=== PATIENT | male | born 1965 | race Caucasian/White ===

== ENCOUNTER → 2020-09-24 11:26 | Outpatient (CLI) | payer BC, SELFPAY ==
[2020-09-24 12:34] LABS: Add Manual Diff / Slide Review NO; Basophils Absolute Auto 0 /uL (0-100); Basophils Percent Auto 0.7 % (0-2); Eosinophils Absolute Auto 100 /uL (0-450); Eosinophils Percent Auto 2.3 % (2-4); Hematocrit 40.2 % (41-53); Lymphocytes Absolute Auto 1300 /uL (1100-4500); Lymphocytes Percent Auto 44.6 % (25-40); Mean Corpuscular HGB Conc 32.3 % (30-36); Mean Corpuscular Hemoglobin 23.1 PG (26-34); Mean Corpuscular Volume 71.7 fL (80-100); Monocytes Absolute Auto 400 /uL (0-900); Monocytes Percent Auto 12.8 % (3-14); Neutrophils Absolute Auto 1200 /uL (1500-7000); Neutrophils Percent Auto 39.6 % (50-75); Platelet Count 162 X10^3/uL (150-400); Red Blood Cell Count 5.61 X10^6/uL (4.5-5.9); Red Cell Distribution Width 15.4 % (11.6-14.8)
[2020-09-24 12:51] LABS: Alanine Aminotransferase 40 IU/L (<50); Albumin 4.3 g/dL (3.5-5.0); Albumin Globulin Ratio 1.5 (1.0-2.8); Alkaline Phosphatase 68 U/L (38-126); Aspartate Aminotransferase 40 IU/L (17-59); BUN Creatinine Ratio 16.7 (6-22); Bilirubin Total 0.8 mg/dL (0.2-1.3); Blood Urea Nitrogen 17 mg/dL (9-20); Calcium 9.7 mg/dL (8.4-10.2); Carbon Dioxide 28 mmol/L (22-32); Chloride 106 mmol/L (98-107); Cholesterol 261 mg/dL (140-199); Estimated Glomerular Filt Rate > 60.0 mL/min (>60); Globulin 2.8 g/dL (1.7-4.1); Glucose 100 mg/dL (70-100); HDL Cholesterol 47 mg/dL (40-60); HEMOLYSIS < 15 (0-50); LDL Cholesterol Calculated 188 mg/dL (<100); Potassium 4.1 mmol/L (3.4-5.1); Sodium 140 mmol/L (137-145); Total Protein 7.1 g/dL (6.3-8.2); Triglycerides 128 mg/dL (35-150)
[2020-09-24 13:18] LABS: Prostate Specific Antigen Scrn 4.17 ng/mL (0.1-4.0)
== END ==
PROVIDERS: PCP Internal Medicine; Referring Provider Internal Medicine; Visit Provider Internal Medicine
DX: E78.2 Mixed hyperlipidemia (principal); Z86.010 Personal history of colon polyps; Z12.5 Encounter for screening for malignant neoplasm of prostate; D56.1 Beta thalassemia
CPT/HCPCS: 36415; 80053; 80061; 85025; G0103

== ENCOUNTER → 2020-11-10 09:12 | Outpatient (CLI) | payer BC, SELFPAY ==
[2020-11-10 10:20] LABS: COVID19 -Nasal RAPID Negative (Negative)
== END ==
PROVIDERS: PCP Internal Medicine; Visit Provider Surgery
DX: Z20.822 Contact with and (suspected) exposure to COVID-19 (principal)
CPT/HCPCS: 87635; C9803

== ENCOUNTER 2020-11-11 13:32 | Day surgery (SDC) | payer BC, SELFPAY ==
--- NOTE | 2020-11-11 | PATH_ITS ---
[facility] Accession Number: [id number] . 01 Material submitted: . sigmoid colon - SIGMOID POLYP . 02 Diagnosis: Sigmoid Polyp: Hyperplastic polyp. MRV 11/17/2020 1117 Local . 02 Electronically signed: . Mariana Kincaid MD, Pathologist NPI- [id number] . 01 Gross description: . SIGMOID POLYP: Received in formalin is 1 fragment(s) of wilson, soft tissue measuring 0.5 x 0.2 x 0.1 cm submitted entirely in 1 cassette(s) /LUIS ENRIQUE 11/12/2020 0852 Local . 02 Pathologist provided ICD-10: Z12.11, K63.5, Z86.010 . 02 CPT . 986916 Performed at: 01 [facility] Cyt[facility] [address] [place] [address], [place], [place] [id number] MD Baudilio Metzger MD Phone: [phone] Performed at: 02 [facility] [address] [place], [place] [id number] MD Alisha Curry MD Phone: [phone]
[2020-11-11] MEDS: LACTATED RINGERS 1,000 ML 200 ML IV (13:47)
[2020-11-11 13:54] VITALS: BP 146/87; PULSE 57; RESP 16; TEMP 36.4; O2SAT 99; BMI 23.7
--- NOTE | 2020-11-11 14:31 | P.HP_ITS ---
History of Present Illness History of Present Illness Date Patient Seen: 11/11/20 Time Patient Seen: 14:32 Chief complaint: SCREENING COLONOSCOPY Narrative: The patient presents for colorectal sreening. Multiple prior colonoscopies most recently 3 years ago had numerous polyps removed all benign. No personal or family history of colon cancer. On further history denies any recent gastrointestinal symptoms. No nausea, vomiting, abdominal pain, loss of appetite, unexplained weight loss, change in bowel habits, diarrhea, constipation, melena, hematochezia, or bright red blood per rectum. Patient History Medical History Beta thalassemia Cervical disc disorder at C5-C6 level with radiculopathy H/O adenomatous polyp of colon Mixed hyperlipidemia Surgical History S/P routine circumcision Family & Social History Family History Father Coronary artery disease Mother Dementia Social History: household members spouse Tobacco & Substance use: Smoking Status Never smoker alcohol intake current alcohol intake frequency a few times a week Substance Use Type does not use Meds Home Medications and Allergies Home Medications Medication Instructions Recorded Confirmed Type sodium,potassium,mag sulfates 17.5 177 ml PO DAILY #354 ml 09/29/20 11/11/20 Rx gram-3.13 gram-1.6 gram oral soln Allergies Allergy/AdvReac Type Severity Reaction Status Date / Time No Known Drug Allergies Allergy Verified 11/11/20 14:01 Review of Systems Review of Systems ROS: Yes All systems reviewed with the patient and are negative except as otherw ise documented Exam Vital Signs (past 8 hours): - 11/11/20 13:54 Temperature 97.5 F L Pulse Rate 57 L Respiratory Rate 16 Blood Pressure 146/87 H Pulse Oximetry 99 Oxygen Delivery Method Room Air Narrative Exam Narrative: GENERAL-well developed adult male, no acute distress HEENT-no scleral icterus, hearing intact NECK-no JVD, trachea midline CVS- regular rate, no peripheral edema RESP-unlabored respiratory effort, no audible wheezing GI-soft, nontender nondistended MSK-no cyanosis or clubbing, extremities without deformity SKIN-warm, dry NEURO-alert and oriented, no focal deficits PYSCH-Appropriate mood and affect Assessment & Plan Assessment & Plan narrative: The patient requires colorectal screening and colonoscopy is recommended. Technical details were discussed. Risks, benefits, alternatives explained. Risks including but not limited to myocardial infarction, aspiration, bleeding, pain, missed lesion, incomplete examination, need for further radiographic studies, colonic perforation, and need for major abdominal surgery were discussed. All questions were answered to their satisfaction, and they are in agreement with this plan.
[2020-11-11] MEDS: fentaNYL 250 MCG/5 ML INJ IV (14:39)
[2020-11-11] MEDS: MIDAZOLAM 5 MG/5 ML VIAL IV (14:40)
--- NOTE | 2020-11-11 15:05 | P.OP.ENDO_ITS ---
Operative Date/Time/Diagnoses Date of procedure: 11/11/20 Time of procedure: 15:06 Pre-op diagnosis: Personal history of colonic polyps Post-op diagnosis: same Procedure & Clinicians Study performed: Colonoscopy Same procedure as scheduled: Yes Indications: Personal history of colonic polyps Surgeon: Hilario Mohamud Procedure Notes Procedure in detail: Medications: Conscious sedation using 6mg IV midazolam and 150mcg IV of fentanyl The history and physical was performed/updated and the patient is ASA class is1. The procedure was discussed in detail with the patient. Potential risks complications including infection, bleeding, missed diagnosis, perforation, need for surgery, and were explained. Their questions were answered and informed consent was obtained. Patient was brought to the procedure room and placed standard monitoring equipment. The patient's vital signs were monitored continuously throughout the entire procedure. Prior to starting time-out was performed. The patient was placed in the left lateral recumbent position. Procedural sedation was administered. Examination began with a thorough inspection of the perianal area there was no evidence of fissures, fistulae, external hemorrhoids or cutaneous m alignancy. The colonoscopy scope was then placed into the anal canal and was advanced to the cecum, which was identified by the ileocecal valve, the appendiceal orifice and the confluence of the taenia. The scope was then slowly withdrawn examining colon thoroughly in all directions, irrigating it of any residual stool. FINDINGS 1. Sigmoid polyp removed with biopsy forceps. Appears residual from prior polypectomy 2. No masses 3. Sigmoid diverticulosis The patient tolerated the procedure well. They will be discharged once criteria are met. The prep was of good/excellent quality. The withdrawl time was 7 minutes. The sedation time was 24 minutes. Specimen(s): other (sigmoid polyp) Impression: colonic polyp Post-procedure Recommendations: Colonscopy in 5 years Disposition: same day surgery
[2020-11-11 15:09] VITALS: BP 119/69; PULSE 47; RESP 16; TEMP 36.9; O2SAT 98
[2020-11-11 15:14] VITALS: BP 114/61; PULSE 52; RESP 16; O2SAT 98
[2020-11-11 15:19] VITALS: BP 114/61; PULSE 57; RESP 16; TEMP 36.8; O2SAT 98
[2020-11-11 15:30] VITALS: BP 123/68; PULSE 52; RESP 18; TEMP 36.5; O2SAT 100
--- NOTE | 2020-11-11 15:46 | SUR.PHASEII ---
pt given discharge instructions and states he understands discharge . pt to be discharged with his .
== END 2020-11-11 15:41 | disposition home or self-care (01) ==
PROVIDERS: PCP Internal Medicine; Referring Provider Surgery; Visit Provider Surgery
PROC: 0DJD8ZZ Inspection of Lower Intestinal Tract, Via Natural or Artificial Opening Endoscopic (ICD-10-PCS; CPT 45378; principal; 2020-11-11 15:15)
DX: Z12.11 Encounter for screening for malignant neoplasm of colon (principal); Z86.010 Personal history of colon polyps; E78.2 Mixed hyperlipidemia; K57.30 Diverticulosis of large intestine without perforation or abscess without bleeding; K63.5 Polyp of colon
CPT/HCPCS: 45380; 99152; J2250; J3010

== ENCOUNTER → 2020-11-15 12:31 | Outpatient (CLI) | payer BC, SELFPAY ==
[2020-11-16 06:18] LABS: PSA Free % 17.7 % (.); PSA, Total 3.5 ng/mL (0.0-4.0)
== END ==
PROVIDERS: PCP Internal Medicine; Referring Provider Internal Medicine; Visit Provider Internal Medicine
DX: R97.20 Elevated prostate specific antigen [PSA] (principal)
CPT/HCPCS: 36415; 84153; 84154

== ENCOUNTER → 2022-09-07 10:35 | Outpatient (CLI) | payer BC, SELFPAY ==
[2022-09-07 11:23] LABS: Add Manual Diff / Slide Review NO; Basophils Absolute Auto 0 /uL (0-100); Basophils Percent Auto 0.3 % (0-2); Eosinophils Absolute Auto 100 /uL (0-450); Eosinophils Percent Auto 1.3 % (2-4); Hematocrit 40.2 % (41-53); Hemoglobin 13.2 g/dL (13.5-17.5); Lymphocytes Absolute Auto 1300 /uL (1100-4500); Lymphocytes Percent Auto 31.8 % (25-40); Mean Corpuscular HGB Conc 32.9 % (30-36); Mean Corpuscular Hemoglobin 23.2 PG (26-34); Mean Corpuscular Volume 70.5 fL (80-100); Monocytes Absolute Auto 400 /uL (0-900); Monocytes Percent Auto 8.8 % (3-14); Neutrophils Absolute Auto 2400 /uL (1500-7000); Neutrophils Percent Auto 57.8 % (50-75); Platelet Count 168 X10^3/uL (150-400); Red Blood Cell Count 5.71 X10^6/uL (4.5-5.9); Red Cell Distribution Width 15.4 % (11.6-14.8); White Blood Cell Count 4.1 X10^3/uL (4.5-11.0)
[2022-09-07 12:06] LABS: Alanine Aminotransferase 76 IU/L (<50); Albumin 4.2 g/dL (3.5-5.0); Albumin Globulin Ratio 1.6 (1.0-2.8); Alkaline Phosphatase 94 U/L (38-126); Aspartate Aminotransferase 45 IU/L (17-59); BUN Creatinine Ratio 15.7 (6-22); Bilirubin Total 0.7 mg/dL (0.2-1.3); Blood Urea Nitrogen 17 mg/dL (9-20); Calcium 9.1 mg/dL (8.4-10.2); Carbon Dioxide 29 mmol/L (22-32); Chloride 102 mmol/L (98-107); Cholesterol 281 mg/dL (140-199); Estimated Glomerular Filt Rate > 60 mL/min (>60); Globulin 2.7 g/dL (1.7-4.1); Glucose 98 mg/dL (70-100); HDL Cholesterol 47 mg/dL (40-60); HEMOLYSIS < 15 (0-50); LDL Cholesterol Calculated 200 mg/dL (<100); Potassium 4.3 mmol/L (3.4-5.1); Sodium 139 mmol/L (137-145); Total Protein 6.9 g/dL (6.3-8.2); Triglycerides 170 mg/dL (35-150)
[2022-09-07 12:34] LABS: Prostate Specific Antigen Scrn 4.62 ng/mL (0.1-4.0)
== END ==
PROVIDERS: PCP Internal Medicine; Referring Provider Internal Medicine; Visit Provider Internal Medicine
DX: D56.1 Beta thalassemia (principal); E78.2 Mixed hyperlipidemia; Z12.5 Encounter for screening for malignant neoplasm of prostate
CPT/HCPCS: 36415; 80053; 80061; 85025; G0103

== ENCOUNTER → 2023-01-02 09:10 | Outpatient (CLI) | payer BC, SELFPAY ==
[2023-01-02 11:08] LABS: Cholesterol 245 mg/dL (140-199); HDL Cholesterol 46 mg/dL (40-60); LDL Cholesterol Calculated 150 mg/dL (<100); Triglycerides 247 mg/dL (35-150)
[2023-01-02 11:36] LABS: Prostate Specific Antigen Scrn 4.52 ng/mL (0.1-4.0)
== END ==
PROVIDERS: PCP Internal Medicine; Referring Provider Internal Medicine; Visit Provider Internal Medicine
DX: E78.2 Mixed hyperlipidemia (principal); R97.20 Elevated prostate specific antigen [PSA]; Z12.5 Encounter for screening for malignant neoplasm of prostate
CPT/HCPCS: 36415; 80061; G0103

== ENCOUNTER → 2023-04-18 09:14 | Outpatient (CLI) | payer BC, SELFPAY ==
[2023-04-18 10:40] LABS: Cholesterol 202 mg/dL (140-199); HDL Cholesterol 45 mg/dL (40-60); LDL Cholesterol Calculated 113 mg/dL (<100); Triglycerides 219 mg/dL (35-150)
== END ==
LOC: LAB 09:14
PROVIDERS: PCP Internal Medicine; Referring Provider Internal Medicine; Visit Provider Internal Medicine
DX: R97.20 Elevated prostate specific antigen [PSA] (principal); E78.2 Mixed hyperlipidemia
CPT/HCPCS: 36415; 80061; 84153

== ENCOUNTER → 2023-11-10 08:15 | Outpatient (CLI) | payer BC, SELFPAY ==
[2023-11-10 10:17] LABS: Alanine Aminotransferase 29 IU/L (<50); Albumin Globulin Ratio 1.7 (1.0-2.8); Alkaline Phosphatase 92 U/L (38-126); Aspartate Aminotransferase 30 IU/L (17-59); BUN Creatinine Ratio 11.9 (6-22); Bilirubin Total 0.7 mg/dL (0.2-1.3); Blood Urea Nitrogen 10 mg/dL (9-20); Calcium 9.3 mg/dL (8.4-10.2); Carbon Dioxide 29 mmol/L (22-32); Chloride 106 mmol/L (98-107); Cholesterol 187 mg/dL (140-199); Estimated Glomerular Filt Rate > 60 mL/min (>60); Globulin 2.3 g/dL (1.7-4.1); Glucose 92 mg/dL (70-100); HDL Cholesterol 36 mg/dL (40-60); HEMOLYSIS < 15 (0-50); LDL Cholesterol Calculated 117 mg/dL (<100); Potassium 4.4 mmol/L (3.4-5.1); Sodium 141 mmol/L (137-145); Total Protein 6.3 g/dL (6.3-8.2); Triglycerides 171 mg/dL (35-150)
[2023-11-10 10:30] LABS: Vitamin D 25 Hydroxy (D3) 44.1 ng/mL (30.0-100.0)
[2023-11-10 10:45] LABS: Prostate Specific Antigen 4.13 ng/mL (0.10-4.00)
[2023-11-10 11:04] LABS: Vitamin B12 741 pg/mL (239-931)
== END ==
PROVIDERS: PCP Internal Medicine; Referring Provider Internal Medicine; Visit Provider Internal Medicine
DX: E78.2 Mixed hyperlipidemia (principal); R97.20 Elevated prostate specific antigen [PSA]; E55.9 Vitamin D deficiency, unspecified; E53.8 Deficiency of other specified B group vitamins
CPT/HCPCS: 36415; 80053; 80061; 82306; 82607; 84153

== ENCOUNTER → 2024-05-01 09:23 | Outpatient (CLI) | payer OTHER, SELFPAY ==
[2024-05-01 10:37] LABS: Cholesterol 237 mg/dL (140-199); HDL Cholesterol 46 mg/dL (40-60); LDL Cholesterol Calculated 145 mg/dL (<100); Triglycerides 231 mg/dL (35-150)
== END ==
PROVIDERS: PCP Internal Medicine; Referring Provider Internal Medicine; Visit Provider Internal Medicine
DX: E78.2 Mixed hyperlipidemia (principal)
CPT/HCPCS: 36415; 80061